=== PATIENT | female | born 1990 | race African-American/Black ===

== ENCOUNTER 2018-10-19 20:05 | Emergency (ER) | payer OTHER ==
[~2018-10-19] VITALS: Ht 149.9 cm; Wt 81.7 kg
[~2018-10-19 20:05] MED LIST: KEFLEX500 MG PO; ULTRAM 50MG TAB50 MG PO
[2018-10-19 23:32] LABS: URINE BILIRUBIN NEGATIVE (Negative); URINE BLOOD TRACE (Negative); URINE CLARITY CLEAR; URINE COLOR YELLOW; URINE GLUCOSE-RANDOM* NEGATIVE (Negative); URINE KETONES NEGATIVE (Negative); URINE LEUKOCYTES-REFLEX NEGATIVE (Negative); URINE NITRITE-REFLEX NEGATIVE (Negative); URINE PROTEIN (DIPSTICK) NEGATIVE (Negative); URINE SPECIFIC GRAVITY <= 1.005 (1.005-1.035); URINE UROBILINOGEN 0.2 E.U./dl (0.2-1.0)
[2018-10-19 23:44] LABS: ABSOLUTE NEUTROPHILS 7.5 thou/uL (1.4-8.2); BASOPHILS 1.2 % (0.0-2.0); EOSINOPHILS 1.9 % (0.0-3.0); HEMATOCRIT 40.4 % (37.0-47.0); HEMOGLOBIN 13.6 gm/dL (12.0-15.0); LYMPHOCYTES 28.6 % (24.0-44.0); MCH 29.3 pg (26.0-34.0); MCHC 33.6 g/dL (28.0-37.0); MCV 87.2 fL (80.0-100.0); MONOCYTES 5.3 % (1.0-8.0); PLATELET COUNT 311 thou/uL (150-400); RBC 4.64 mil/uL (4.20-5.00); RDW 13.4 % (10.5-14.5)
[2018-10-19 23:45] LABS: CALCIUM 9.1 mg/dL (8.5-10.1); CREATININE 0.9 mg/dL (0.6-1.0); POTASSIUM 3.5 mmol/L (3.5-5.1)
[2018-10-19 23:51] LABS: ALBUMIN 3.4 g/dL (3.4-5.0); TOTAL BILIRUBIN 0.2 mg/dL (<0.1-1.0); TOTAL PROTEIN 7.8 g/dL (6.4-8.2)
[2018-10-20 00:49] VITALS: BP 101/62
== END 2018-10-20 00:50 | disposition home or self-care (01) ==
LOC: ER 20:05
PROVIDERS: Physician Assistant; Student in an Organized Health Care Education/Training Program
DX: R10.12 Left upper quadrant pain (principal); F32.9 Major depressive disorder, single episode, unspecified; F41.9 Anxiety disorder, unspecified; Z87.891 Personal history of nicotine dependence

== ENCOUNTER 2019-08-24 10:20 | Emergency (ER) | payer OTHER ==
[~2019-08-24] VITALS: Ht 149.9 cm; Wt 77.1 kg
[2019-08-24] MEDS ORDERED: NORCO 5-325 TA1 EAC2 PO (12:20)
[2019-08-24 12:36] VITALS: BP 114/74
== END 2019-08-24 12:30 | disposition home or self-care (01) ==
LOC: ER 10:20
DX: S93.402A Sprain of unspecified ligament of left ankle, initial encounter (principal); F32.9 Major depressive disorder, single episode, unspecified; F41.9 Anxiety disorder, unspecified; Z79.2 Long term (current) use of antibiotics; Z79.899 Other long term (current) drug therapy; Z87.891 Personal history of nicotine dependence; W10.8XXA Fall (on) (from) other stairs and steps, initial encounter; Y93.89 Activity, other specified; Y92.89 Other specified places as the place of occurrence of the external cause; Y99.8 Other external cause status